=== PATIENT | male | born 1955 | race Caucasian/White ===

== ENCOUNTER 2021-03-16 13:33 | Inpatient (IN) | payer OTHER ==
[~2021-03-16] VITALS: Ht 182.9 cm; Wt 108.4 kg
[2021-03-16 13:35] VITALS: BP 179/90
[2021-03-16 13:52] LABS: ABSOLUTE NEUTROPHILS 3.4 thou/uL (1.4-8.2); BASOPHILS 0.7 % (0.0-2.0); EOSINOPHILS 2.3 % (0.0-3.0); HEMATOCRIT 37.6 % (42.0-52.0); HEMOGLOBIN 12.8 gm/dL (14.0-18.0); LYMPHOCYTES 17.3 % (24.0-44.0); MCH 30.7 pg (26.0-34.0); MCV 90.1 fL (80.0-100.0); MONOCYTES 12.5 % (1.0-8.0); PLATELET COUNT 126 thou/uL (150-400); POLYS 67.2 % (36.0-66.0); RBC 4.18 mil/uL (4.50-6.00); RDW 13.2 % (10.5-14.5); WBC 5.1 thou/uL (4.0-11.0)
[2021-03-16 14:00] LABS: CALCIUM 8.6 mg/dL (8.5-10.1); CREATININE 1.2 mg/dL (0.7-1.3); POTASSIUM 4.5 mmol/L (3.5-5.1)
[2021-03-16 14:05] LABS: APTT 26.8 Seconds (24.5-32.8); INR 0.98; PROTIME 10.7 Seconds (10.5-12.1)
[2021-03-16 14:11] LABS: ALBUMIN 3.7 g/dL (3.4-5.0); TOTAL BILIRUBIN 0.7 mg/dL (0.2-1.0); TOTAL PROTEIN 6.6 g/dL (6.4-8.2)
--- NOTE | 2021-03-17 01:20 | NUR ---
UP TO BSC WITH ASSISTANCE TO VOID. C/O INCREASED BACK PAIN WITH MOVEMENT.
--- NOTE | 2021-03-17 01:31 | NUR ---
PAGED HOSPITALIST ACCESSORIES REPAIRER FOR PAIN MEDICATION. PT C/O BACK PAIN AND HEADACHE.
--- NOTE | 2021-03-17 03:40 | NUR ---
NOTIFIED COMBINE INSPECTOR CAMPUS SAFETY OFFICER FOR HOSPIALIST OF ELEVATED BP. WAITING FOR POSSIBLE ORDERS.
--- NOTE | 2021-03-17 05:25 | NUR ---
HYDRALAZINE GIVEN FOR HTN.
--- NOTE | 2021-03-17 05:25 | NUR ---
UNABLE TO COMPELTE PT'S MED REC. HE STATES HE DOES NOT REMEMBER ALL OF HIS HOME MEDS, HE TAKES ROUGHLY 30 MEDS.
--- NOTE | 2021-03-17 05:45 | NUR ---
ASSUMED PT CARE AROUND MIDNIGHT. PT HAS SOME EPISODES OF CONFUSION, FORGETFULNESS. HE IS MORE AWAKE AND ORIENTED THIS MORNING. LIDOCAINE PATCH APPLIED TO LOW BACK. TYLENOL GIVEN FOR HEADACHE. PT STATES PAIN IS NOW MORE TOLERABLE. NIH STROK SCALE COMPLETED CHARTED. STILL IN ER, WAITING FOR INPATIENT BED.
[2021-03-17 08:20] LABS: URINE BILIRUBIN NEGATIVE (Negative); URINE BLOOD NEGATIVE (Negative); URINE CLARITY CLEAR; URINE COLOR YELLOW; URINE GLUCOSE-RANDOM* 3+ (Negative); URINE KETONES NEGATIVE (Negative); URINE LEUKOCYTES-REFLEX NEGATIVE (Negative); URINE NITRITE-REFLEX NEGATIVE (Negative); URINE PROTEIN (DIPSTICK) TRACE (Negative); URINE SPECIFIC GRAVITY 1.015 (1.005-1.035); URINE UROBILINOGEN 0.2 E.U./dl (0.2-1.0)
[2021-03-17 08:29] LABS: AMP/METHAMP Negative (Negative); BARBITURATES Negative (Negative); BENZODIAZEPINES Negative (Negative); COCAINE Negative (Negative); METHADONE Negative (Negative); OPIATES Negative (Negative); PCP Negative (Negative)
--- NOTE | 2021-03-17 11:35 | EKG ---
[address] [address] ELECTROCARDIOGRAM REPORT Name: MICHAEL CRAFT Room #: 170-5 ADM IN M.R.#: [id number] Admission: 03/16/21 Attend Phys: Jody Curtis MD Discharge: Date of : 51 Report #: [id number] [facility] ED Test Date: 2021-03-16 Test Time: 13:40:34 Pat Name: MICHAEL CRAFT Department: Room: 170 Gender: M Overhead Door Technician: SHAINA : 1955 Requested By: Taco Caraballo Order Number: [id number] MD: Thomas Roldan Measurements Intervals [place] Rate: 0 P: 0 CT: QRS: 0 QRSD: T: QT: QTc: 0 Interpretive Statements All 12 leads are missing Electronically Signed On 03-17-2021 11:34:58 CDT by Thomas Roldan [email or web address] <ELECTRONICALLY SIGNED> By: Thomas Roldan MD 03/17/21 1134 1340 1340 Thomas Roldan MD /EPI
--- NOTE | 2021-03-17 11:35 | EKG ---
[address] [place] [address] ELECTROCARDIOGRAM REPORT Name: MICHAEL CRAFT Room #: 170-5 ADM IN M.R.#: [id number] Admission: 03/16/21 Attend Phys: Jody Curtis MD Discharge: Date of : 51 Report #: [id number] [facility] ED Test Date: 2021-03-16 Test Time: 13:34:49 Pat Name: MICHAEL CRAFT Department: Room: 170 Gender: M Application Systems Engineer: SHAINA : 1955 Requested By: Taco Caraballo Order Number: [id number] MD: Thomas Roldan Measurements Intervals [place] Rate: 76 P: 40 [place]: 178 QRS: 49 QRSD: 112 T: 75 QT: 414 QTc: 466 Interpretive Statements Sinus rhythm Incomplete left bundle branch block Baseline wander in lead(s) II,III,aVF No previous ECG available for comparison Electronically Signed On 03-17-2021 11:35:13 CDT by Thomas Roldan [email or web address] <ELECTRONICALLY SIGNED> By: Thomas Roldan MD 03/17/21 1135 1334 1334 Thomas Roldan MD /ABHI
[2021-03-17 14:27] VITALS: BP 170/95
[2021-03-17] MEDS ORDERED: JANUMET 50-1,01 EACH PO (14:27)
[2021-03-17] MEDS ORDERED: CARVEDILOL25 MG PO (14:28)
[2021-03-17] MEDS ORDERED: NORVASC5 MG PO (14:28)
[2021-03-17] MEDS ORDERED: ALLOPURINOL 10100 M1 PO (14:29)
[2021-03-17] MEDS ORDERED: LOSARTAN-HCTZ1 EAC3 PO (14:29)
[2021-03-17] MEDS ORDERED: GLIPIZIDE 10 MG10 MG PO (14:29)
[2021-03-17] MEDS ORDERED: MELOXICAM15 MG PO (14:29)
[2021-03-17 14:30] VITALS: BP 141/80
[2021-03-17] MEDS ORDERED: PROZAC20 M1 PO (14:30)
[2021-03-17] MEDS ORDERED: OMEPRAZOLE40 MG PO (14:30)
[2021-03-17] MEDS ORDERED: PRAZOSIN HCL1 MG PO (14:32)
[2021-03-17] MEDS ORDERED: REMERON30 M1 PO (14:32)
[2021-03-17] MEDS ORDERED: AZULFIDINE500 MG PO (14:32)
[2021-03-17] MEDS ORDERED: NEURONTIN300 MG PO (14:33)
[2021-03-17] MEDS ORDERED: ZOCOR 20 MG TAB20 M1 PO (14:33)
[2021-03-17] MEDS ORDERED: ARICEPT10 M1 PO (14:34)
[2021-03-17] MEDS ORDERED: PLAQUENIL200 MG PO (14:34)
[2021-03-17] MEDS ORDERED: FUROSEMIDE 20 M20 M1 PO (14:34)
[2021-03-17 15:00] VITALS: BP 179/85
--- NOTE | 2021-03-17 15:10 | NUR ---
PT ORIENTED TO ROOM AND UNIT, BED LOW AND LOCKED, SIDE RAILS UPX3, CALL LIGHT IN REACH, TELE APPLIED, WILL CONTINUE TO ASSESS.
--- NOTE | 2021-03-17 17:32 | NUR ---
LÁZARO TEXT DR. BRIDGES ABOUT PT REQUESTING HIS PTSD MEDS TO BERESTARTED.
[2021-03-17 20:00] VITALS: BP 189/69
[2021-03-18 05:20] VITALS: BP 127/75
--- NOTE | 2021-03-18 06:23 | NUR ---
PT AMBULATING TO BATHROOM WITH WALKER AND ASSIST X1 AND IS TOLERATING FAIR. DENIES PAIN. RESTING COMFORTABLY. NO NEEDS VOICED. CALL LIGHT WITHIN REACH. FREQUENT OBSERVATION.
[2021-03-18 08:45] VITALS: BP 150/66
--- NOTE | 2021-03-18 09:39 | HC ---
[facility] [place] [address] CONSULTATION Name: MICHAEL CRAFT Room #: 219-P ADM IN M.R.#: [id number] Admission: 03/16/21 Attend Phys: Jody Curtis MD Discharge: Date of : 51 Report #: [id number] THIS REPORT FOR: cc: FAM - No family physician/PCP FAM - No family physician/PCP Val Young DO ~ DATE OF SERVICE: 03/17/2021 NEUROLOGY CONSULTATION HISTORY OF PRESENT ILLNESS: The patient is a 65-year-old male who had an episode of unconsciousness while visiting the neurosurgeon. When the patient lay on the exam table, he became unresponsive. He woke up 20 minutes later and was completely oriented. No mention is made of jerking of the extremities or any seizure-like activity. The patient tells me he has had a syncopal episode in the past and was worked up by Cardiology, but nothing was found. When the patient came to [facility], he had a CT angiogram, which was unremarkable. He has had an echo, the results of which are pending. I asked the patient if he has sleep apnea and he tells me that he does. His machine is broken and he has not used it for 2 years. I did try to call his son, but there was no answer and I did not leave a message. PAST MEDICAL HISTORY: Hypertension, diabetes, hyperlipidemia. PAST SURGICAL HISTORY: Hernia repair. MEDICATIONS: Sliding scale insulin, amlodipine 10 mg daily, aspirin 325 mg daily, hydralazine p.r.n., lidocaine patch daily. ALLERGIES: None. PHYSICAL EXAMINATION: VITAL SIGNS: Temperature 37.1, pulse rate 83, respiratory rate 13, blood pressure 170/95. The highest blood pressure he patient has had here is 221/101, bedside pulse oximetry 96%. LABORATORY DATA: Hematology: White blood cell count 5.1, hemoglobin 12.8, hematocrit 37.6, MCV 90.1, platelet count 126,000. Urinalysis: Trace protein, 3+ glucose. Chemistry: Sodium 143, potassium 4.5, chloride 106, carbon dioxide 29, BUN 16, creatinine 1.2, GFR 60, glucose 404, calcium 8.6, total bilirubin 0.7, AST 21, ALT 33, alkaline phosphatase 59, albumin 3.7. Toxicology screen negative. COVID negative. IMAGING: Carotid ultrasound demonstrates no significant atherosclerotic plaquing. CT angiogram shows no acute intracranial process. Unremarkable CT [address] [address] CONSULTATION Name: MICHAEL CRAFT Room #: 219-P ADM IN ..#: [id number] Admission: 03/16/21 Attend Phys: Jody Curtis MD Discharge: Date of : 51 Report #: [id number] angiogram of the head and neck. Chest x-ray: No acute pulmonary disease. MRI head, no acute infarct or other intracranial abnormality. MRI of the cervical spine shows severe multilevel cervical spondylosis, greatest at C3-C4 where there is moderate to severe central canal stenosis. NEUROLOGIC EXAM: Cranial nerves II-XII are grossly intact. Motor exam demonstrates symmetrical strength in all 4 extremities with tone and bulk normal. Reflexes are symmetrical throughout. Plantar responses are flexor. There is no dysmetria in the upper extremities. IMPRESSION AND PLAN: This patient has had an episode of loss of consciousness. The workup so far is unremarkable; however, the results of the echo are pending. If the echo is unremarkable, I would recommend an outpatient Cardiology consult to evaluate for arrhythmia. Also, of concern is the fact that the patient has sleep apnea and has not used his CPAP machine for 2 years. I suggested to him that he have this fixed. He did admit to me that he is tired during the day. I thank you for your kind referral of this patient. We will continue to follow him with you. <ELECTRONICALLY SIGNED> By: Val Young DO 03/18/21 0939 1316 Val Young DO /nt
[2021-03-18 12:40] VITALS: BP 157/72
[2021-03-18 16:35] VITALS: BP 138/75
[2021-03-18 19:37] VITALS: BP 128/66
--- NOTE | 2021-03-18 20:05 | NUR ---
PT IS AXOX4, PLEASANT. VS SBP 150s, AFEBRILE, SR ON THE MONITOR. DR BRIDGES CONSULTED. CONSULT PLACED TO DR JORGE. POC IS TO CONTINUE TO ASSESS PT ORIENTATION FOR ANY CHANGES. PT EDUCATION DONE AT THE BEDSIDE IN REGARDS TO BLOOD SUGAR AND INSULIN. PT AND PT COMMUNICATED UNDERSTANDING. LOW FALL PRECAUTIONS IN PLACE. NO CONCERNS AT THIS TIME.
[2021-03-19 04:05] LABS: GLYCOHEMOGLOBIN (HGB A1C) 6.2 % (4.8-5.6)
[2021-03-19 04:51] VITALS: BP 103/44
--- NOTE | 2021-03-19 06:52 | NUR ---
PT AMBULATING TO BATHROOM WITH STANDBY ASSIST AND IS TOLERATING FAIR. DENIES PAIN. RESTING COMFORTABLY. NO NEEDS VOICED. CALL LIGHT WITHIN REACH. FREQUENT OBSERVATION.
--- NOTE | 2021-03-19 11:57 | 2DMMODE ---
[facility] [place] [address] 2 D/M-MODE ECHOCARDIOGRAM Name: MICHAEL CRAFT Room #: 219-P ADM IN M.R.#: [id number] Admission: 03/16/21 Attend Phys: Jody Curtis MD Discharge: Date of : 51 Report #: [id number] THIS REPORT FOR: cc: FAM - No family physician/PCP FAM - No family physician/PCP Thomas Roldan MD ~ APPROVED REPORT Study performed: 03/19/2021 10:14:26 EXAM: Comprehensive 2D, Doppler, and color-flow Echocardiogram Patient Location: In-Patient Room #: 219 Status: routine BSA: 2.30 HR: 70 bpm BP: 103/44 mmHg Rhythm: NSR Other Information Study Quality: Adequate Indications Diabetes Syncope AMS 2D Dimensions IVSd: 12.14 (7-11mm) LVOT Diam: 21.47 (18-24mm) LVDd: 49.96 mm PWd: 12.87 (7-11mm) Ascending Ao: 31.54 (22-36mm) LVDs: 37.22 (25-40mm) Left Atrium: 34.00 (27-40mm) Aortic Root: 26.52 mm Volumes Left Atrial Volume (Systole) Single Plane 4CH: 54.14 mL Single Plane 2CH: 70.43 mL Biplane LA Volume: 71.00 mL LA ESV Index: 31.00 mL/m2 Aortic Valve AoV Peak Ruddy.: 1.62 m/s AO Peak Gr.: 10.45 mmHg LVOT Max P.32 mmHg LVOT Max V: 0.91 m/s [facility] [address] [address] 2 D/M-MODE ECHOCARDIOGRAM Name: VENANCIOMICHAEL TREJO Room #: 219-P [facility] IN ..#: [id number] Admission: 03/16/21 Attend Phys: Luis Fernando Guerra Discharge: Date of : 51 Report #: [id number] NACHO Vmax: 2.04 cm2 Mitral Valve E/A Ratio: 1.0 MV Decel. Time: 1739.40 ms MV E Max Ruddy.: 0.64 m/s MV A Ruddy.: 0.66 m/s MV PHT: 504.43 ms IVRT: 92.27 ms Pulmonary Valve PV Peak Ruddy.: 1.02 m/s PV Peak Gr.: 4.19 mmHg Pulmonary Vein P Vein S: 0.83 m/s P Vein A: 0.37 m/s P Vein D: 0.32 m/s P Vein A Dur.: 96.9 msec P Vein S/D Ratio: 2.59 Tricuspid Valve TR Peak Ruddy.: 1.52 m/s RAP Estimate: 10.00 mmHg TR Peak Gr.: 9.23 mmHg RVSP: 19.00 mmHg Left Ventricle The left ventricle is normal size. There is normal LV segmental wall motion. Mild concentric left ventricular hypertrophy. Left ventricular systolic function is normal. The left ventricular ejection fraction is within the normal range. LVEF is 55%. Grade I - abnormal relaxation pattern. Right Ventricle The right ventricle is normal size. The right ventricular systolic function is normal. Atria The left atrium size is normal. The right atrium size is normal. Aortic Valve The aortic valve is normal in structure. No aortic regurgitation is present. There is no aortic valvular stenosis. Mitral Valve The mitral valve is normal in structure. Mild mitral regurgitation. No evidence of mitral valve stenosis. Tricuspid Valve [facility] [address] [place] [address] 2 D/M-MODE ECHOCARDIOGRAM Name: MICHAEL CRAFT Room #: 219-P ADM IN M.R.#: [id number] Admission: 03/16/21 Attend Phys: Luis Fernando Guerra Discharge: Date of : 51 Report #: [id number] The tricuspid valve is normal in structure. Mild tricuspid regurgitation. Pulmonic Valve The pulmonary valve is normal in structure. There is no pulmonic valvular regurgitation. Great Vessels The aortic root is normal in size. The IVC is dilated. Pericardium There is no pericardial effusion. There is no pleural effusion. <Conclusion> The left ventricle is normal size. Mild concentric left ventricular hypertrophy. Left ventricular systolic function is normal. The right ventricle is normal size. The left atrium size is normal. The aortic valve is normal in structure. Mild mitral regurgitation. Mild tricuspid regurgitation. <ELECTRONICALLY SIGNED> By: Thomas Roldan MD 03/19/21 1157 1157 1157 Thomas Roldan MD /INF
[2021-03-19 12:00] VITALS: BP 137/63
--- NOTE | 2021-03-19 18:57 | NUR ---
Patient admits EMS from phys office due to syncopal episode. Patient lives in 2 story home with steps. Patient utilizes a walker. He has some assist from /son for adls. Patient evaled by therapy and 5N. Candidate for acute rehab. Patient/ live in [place] and prefer rehab closer to home. [facility] [phone] [place] [phone]. they are interested [facility] to [facility] Sp with [facility] and faxed referral. Offered acute rehab at [facility] but prefers closer to home. Updated phys
--- NOTE | 2021-03-19 19:47 | NUR ---
ASSESSMENT CHARTED - MEDS PER [facility] - JOSH DIET AND FLUIDS. NO CO'S OF PAIN OR NAUSEA. LIDOCAINE PATCH TO MID LOWER BACK FOR CHRONIC BACK ISSUES.- SPINAL STENOSIS PT WITH NO CO'S OF BACK PAIN. PT UP TO THE BATHROOM WITH USE OF WALKER - PT WITH CO'S OF SOME LOOSE STOOL THIS SHIFT. ACCUCHECKS CHARTED - COVERED PER SSI. PT UP TO THE CHIAR - SEEN BY PHYS AND OCC THERAPY THIS SHIFT. NO CO'S AT THE PRESENT TIME.
[2021-03-19 20:40] VITALS: BP 150/72
[2021-03-20 04:24] VITALS: BP 150/73
[2021-03-20 08:00] VITALS: BP 156/59
[2021-03-20 12:00] VITALS: BP 154/66
[2021-03-20] MEDS ORDERED: CARVEDILOL25 MG PO (15:27)
[2021-03-20] MEDS ORDERED: KLONOPIN1 MG PO (15:31)
[2021-03-20] MEDS ORDERED: CARBIDOPA-LEVO1 EAC1 PO (15:32)
[2021-03-20 15:34] VITALS: BP 154/72; BP 156/72
--- NOTE | 2021-03-20 17:15 | NUR ---
Spoke with patient, and therapist. Patient progressing with therapy he can return home with HH care. , patient in agreement with plan. [email or web address] to inquire into HH care in [place].
--- NOTE | 2021-03-20 17:58 | NUR ---
ASSUMED CARE SHIFT CHANGE. VSS C/O HEADACHE MANAGED WITH PO MEDS. O2 SATS WNL RA. UP WITH WALKER JOSH WELL. UO ADEQUATE. NO S/SX SYNCOPAL EPISODES. PT SEEN BY OT/PT JOSH WELL. PT C/O HAVING DIARRHEA SEVERAL TIMES FOR PAST FEW DAYS PHYSICIAN NOTIFED ORDERS RECEIVED TO R/O CDIFF, ISO MAINTAINED. PHARMACY CONSULTED FOR MED REC. PT DENIES NEEDS CURRENTLY, CONT POC. WILL PASS REPORT TO NIKKI GUZMAN.
[2021-03-20 19:58] VITALS: BP 166/69
[2021-03-20 20:17] LABS: HEMATOCRIT 40.9 % (42.0-52.0); HEMOGLOBIN 14.1 gm/dL (14.0-18.0); MCH 30.4 pg (26.0-34.0); MCHC 34.5 g/dL (28.0-37.0); MCV 88.2 fL (80.0-100.0); RBC 4.64 mil/uL (4.50-6.00); RDW 13.3 % (10.5-14.5); WBC 6.9 thou/uL (4.0-11.0)
[2021-03-20 20:30] LABS: CALCIUM 9.1 mg/dL (8.5-10.1); CREATININE 1.1 mg/dL (0.7-1.3); MAGNESIUM 1.7 mg/dL (1.8-2.4); POTASSIUM 4.1 mmol/L (3.5-5.1)
[2021-03-21] VITALS (8 sets, daily range): BP systolic 119–164; BP diastolic 46–77
[2021-03-21 03:40] LABS: HEMATOCRIT 36.2 % (42.0-52.0); MCH 31.5 pg (26.0-34.0); MCV 87.7 fL (80.0-100.0); RBC 4.13 mil/uL (4.50-6.00); RDW 13.3 % (10.5-14.5); WBC 5.9 thou/uL (4.0-11.0)
--- NOTE | 2021-03-21 05:24 | NUR ---
pt resting quietly in room thru the noc, prn hydralizine given for sbp 166 and rechecked at 00 130/46, no c/o pain, voiding per urinal, no stool thru the [facility] to send for cdiff, pt plans to dc with hh today, will con't to monitor per ppoc.
[2021-03-21 05:49] LABS: CALCIUM 8.9 mg/dL (8.5-10.1); CREATININE 0.9 mg/dL (0.7-1.3); MAGNESIUM 1.8 mg/dL (1.8-2.4); POTASSIUM 3.6 mmol/L (3.5-5.1)
--- NOTE | 2021-03-21 12:28 | NUR ---
Assumed care of pt this AM. Pt is A&O x4, plesant. On room air, denies any chest pain. Cardio office came by and gave pt Holter monitor. Stool sample sent for cdiff test this AM, semi formed soft stool. Plan to discharge home today with home health, case management working company. SR on the monitor. Will continue to assess pt needs.
[2021-03-21] MEDS ORDERED: CARVEDILOL25 MG PO (14:18)
[2021-03-21] MEDS ORDERED: COZAAR100 MG PO (14:19)
--- NOTE | 2021-03-21 16:15 | NUR ---
DISCHARGE NOTE: tele & IV discontinued. Discharge education provided, all questions answered. Forms signed. Pt wheeled to main entrance to leave via son's car.
--- NOTE | 2021-03-21 17:20 | NUR ---
Plan dc home with HH care. agreeable with HH that services area and in network with insurance. Faxed referral to [facility], [facility] and [facility] care. Only [facility] could accept patient. At wifes request faxed clinical information to PCP office Dr Elijah Mckay [phone]. Confirmed with office they will follow for HH care. Son to transport home no further needs
--- NOTE | 2021-03-22 10:53 | EEG ---
[facility] [place] [address] ELECTROENCEPHALOGRAM Name: MICHAEL CRAFT Room #: 219-P [facility] IN M.R.#: [id number] Admission: 03/16/21 Attend Phys: Jody Curtis MD Discharge: 03/21/21 Date of : 51 Report #: [id number] THIS REPORT FOR: //name// DATE OF SERVICE: 03/20/2021 This patient is being evaluated for altered mental status. EEG was done by placing the electrode by standard 10-20 system of electrode placement. Both referential and sequential montages were used for recording. Background activity in this patient's EEG is about 10 Hz and 30 microvolt. The patient went to sleep, that is associated with bilateral slowing and vertex sharp waves. Photic stimulation is unremarkable. Throughout the record, no active epileptiform activity was noticed. IMPRESSION: This patient's EEG is intermixed with some theta range slowing, but does not appear to be showing any well-defined epileptiform activity. <ELECTRONICALLY SIGNED> By: Stef Garcia MD 03/22/21 1053 1506 1605 Stef Garcia MD /nt
--- NOTE | 2021-03-27 11:04 | HC ---
[facility] [place] [address] CONSULTATION Name: MICHAEL CRAFT Room #: 219-P [facility] IN M.R.#: [id number] Admission: 03/16/21 Attend Phys: Jody Curtis MD Discharge: 03/21/21 Date of : 51 Report #: [id number] THIS REPORT FOR: cc: FAM - No family physician/PCP FAM - No family physician/PCP Raul Lopes MD ~ HISTORY OF PRESENT ILLNESS: The patient is a 65-year-old white male who had a syncopal episode while at the neurosurgery office. He apparently did not wake up for approximately 20 minutes. He was being evaluated there for neck pain. He was thus brought in to [facility] for further evaluation regarding the syncopal episode. He is to have an echocardiogram done. Neurology is involved. Neurosurgery is seeing him as well. MRI did show severe multilevel cervical spondylosis. MRI of the brain did not show any acute infarct. The patient apparently has a history of obstructive sleep apnea, but per the , he had a sleep study 6 months ago and does not qualify for CPAP. Further evaluation is underway. The patient notes he is feeling much better. PAST MEDICAL HISTORY: Diabetes mellitus and hypertension. He does have a history of multiple traumatic brain injuries per report and has a history of forgetfulness. His is noted to assist him at home. He does have a history of elevated lipids and obstructive sleep apnea. MEDICATIONS: Please see the full medication listing. ALLERGIES: No known drug allergies. SOCIAL HISTORY: Lives in [place] with his ; house, two stories. is retired. It is my understanding that he did not utilize any gait aids premorbidly. REVIEW OF SYSTEMS: No current complaints of chest pain, shortness of breath or abdominal discomfort. PHYSICAL EXAMINATION: GENERAL: A 65-year-old white male in no obvious distress. The patient is alert, pleasant. VITAL SIGNS: Last recorded temperature 36.4, pulse 63, respirations 16, blood pressure 103/44. HEENT: Appeared to be benign. NEUROLOGIC: Cranial nerves are grossly intact. Facies are symmetric. EXTREMITIES: He has functional range of motion of both upper and lower extremities. I would grade her strength at probably a grade 4/5. He is sitting up, eating breakfast, appears to have a good appetite and is doing well as far as cutting up and feeding himself and has no problems with coughing or difficulty obviously noted with swallowing. [facility] [address] [place] [address] CONSULTATION Name: MICHAEL CRAFT Room #: 219-P [facility] IN M.R.#: [id number] Admission: 03/16/21 Attend Phys: Jody Curtis MD Discharge: 03/21/21 Date of : 51 Report #: [id number] ASSESSMENT: A 65-year-old white male with the following problem list: 1. Syncopal episode, noted to be feeling much better. This is of unclear etiology. 2. History of neck pain with severe cervical spine degenerative arthritis. This is multilevel cervical spondylosis with moderate to severe central canal stenosis. 3. Diabetes mellitus, noted to be not well controlled. 4. Hypertension, not well controlled. 5. Hyperlipidemia. 6. History of multiple traumatic brain injuries with a history of forgetfulness premorbidly. 7. Neck pain that was being evaluated. 8. Mild thrombocytopenia. PLAN: Therapy evaluations are to be undertaken. The patient notes he is feeling better and would like to have as much of the further workup done in [place] if possible. We will see how he does in therapies, but would anticipate that he will likely be able to return back to the home setting as he further medically stabilizes. We will continue to follow along with you for now. Thank you for asking us to assist in this patient's care. <ELECTRONICALLY SIGNED> By: Raul Lopes MD 03/27/21 1104 0826 0900 Raul Lopes MD /nt
== END 2021-03-21 17:07 | disposition home health service (06) | DRG 552 ==
LOC: ER 13:33 → EROBS 19:52 → 2N 19:52 → EROBS 03-17 10:09 → 2N 03-17 14:37
PROVIDERS: Internal Medicine; Psychiatry & Neurology Neurology; Student in an Organized Health Care Education/Training Program; ADMIT Hospitalist; ATTEND Hospitalist
DX: M48.02 Spinal stenosis, cervical region (principal); I69.351 Hemiplegia and hemiparesis following cerebral infarction affecting right dominant side; E11.65 Type 2 diabetes mellitus with hyperglycemia; G47.33 Obstructive sleep apnea (adult) (pediatric); I95.1 Orthostatic hypotension; R41.82 Altered mental status, unspecified; E78.5 Hyperlipidemia, unspecified; F41.9 Anxiety disorder, unspecified; R19.7 Diarrhea, unspecified; N40.0 Benign prostatic hyperplasia without lower urinary tract symptoms; F31.9 Bipolar disorder, unspecified; F43.10 Post-traumatic stress disorder, unspecified; F41.0 Panic disorder [episodic paroxysmal anxiety]; I08.1 Rheumatic disorders of both mitral and tricuspid valves; I11.9 Hypertensive heart disease without heart failure; M47.812 Spondylosis without myelopathy or radiculopathy, cervical region; E11.9 Type 2 diabetes mellitus without complications; D69.6 Thrombocytopenia, unspecified; Z20.822 Contact with and (suspected) exposure to COVID-19; Z87.820 Personal history of traumatic brain injury; Z82.49 Family history of ischemic heart disease and other diseases of the circulatory system; Z79.899 Other long term (current) drug therapy; Z79.82 Long term (current) use of aspirin
CPT/HCPCS: 10081